=== PATIENT | female | born 1935 | race Caucasian/White ===

== ENCOUNTER 2020-08-21 08:09 | Emergency (ER) | payer MEDICARE, OTHER ==
[2020-08-21 08:50] LABS: BASOPHIL 0.5 % (0-2); EOSINOPHIL 1.9 % (0-7); HCT 40.3 % (37.0-47.0); HGB 13.9 g/dl (12.5-16.0); MCH 32.4 pg (25.0-31.0); MCHC 34.5 g/dL (32.0-36.0); MCV 93.9 fL (78.0-100.0); MONOCYTE 6.9 % (0-12); MPV 10.9 fL (6.0-9.5); NEUTROPHIL 79.4 % (41-80); NRBC 0; PLT 146 K/uL (150-400); RBC 4.29 M/uL (4.20-5.40); RDW 12.7 % (11.5-14.0); WBC 6.4 K/uL (4.0-10.5)
[2020-08-21 09:06] LABS: ALBUMIN 3.6 g/dL (3.4-5.0); BILIRUBIN - TOTAL 0.9 mg/dL (0.2-1.0); BUN/CREAT RATIO (CALC) 21.5 RATIO; CREATININE 0.79 mg/dL (0.51-0.95); GLOBULIN (CALCULATION) 3.3 g/dL; POTASSIUM 3.6 mmol/L (3.5-5.1); TOTAL PROTEIN 6.9 g/dL (6.4-8.2)
[2020-08-21 09:28] LABS: BILIRUBIN NEGATIVE (NEGATIVE); BLOOD NEGATIVE Ery/uL (NEGATIVE); CLARITY CLEAR (CLEAR); COLOR YELLOW (YELLOW); GLUCOSE (U) NORMAL (NORMAL); LEUKOCYTES 1+ Leu/uL (NEGATIVE); NITRITE NEGATIVE (NEGATIVE); PROTEIN 1+ mg/dL (NEGATIVE); SPECIFIC GRAVITY 1.015 (1.001-1.030); UROBILINOGEN 0.2 mg/dL (0.2-1.0); pH 7.5 (5.0-9.0)
[2020-08-21 09:46] LABS: BACTERIA TRACE; URINARY WBC 20-50
[2020-08-21] MEDS ORDERED: CEFDINIR300 MG PO (10:15)
== END 2020-08-21 12:45 | disposition home or self-care (01) ==
LOC: FER 08:09
PROVIDERS: Emergency Medicine
DX: N39.0 Urinary tract infection, site not specified (principal); I10 Essential (primary) hypertension; I45.10 Unspecified right bundle-branch block; G20 Parkinson's disease; Z88.8 Allergy status to other drugs, medicaments and biological substances; Z79.899 Other long term (current) drug therapy
CPT/HCPCS: 36415; 71045; 72072; 80053; 81001; 84484; 85025; 87088; 93005

== ENCOUNTER 2020-08-31 08:44 | Day surgery (SDCO) | payer MEDICARE, OTHER ==
[~2020-08-31 08:44] MED LIST: CEFDINIR300 MG PO
[2020-08-31 10:09] LABS: BILIRUBIN NEGATIVE (NEGATIVE); BLOOD NEGATIVE Ery/uL (NEGATIVE); CLARITY CLEAR (CLEAR); COLOR YELLOW (YELLOW); GLUCOSE (U) NORMAL (NORMAL); LEUKOCYTES NEGATIVE Leu/uL (NEGATIVE); NITRITE NEGATIVE (NEGATIVE); PROTEIN 2+ mg/dL (NEGATIVE); UROBILINOGEN 0.2 mg/dL (0.2-1.0); pH 7.5 (5.0-9.0)
[2020-08-31 10:21] LABS: BASOPHIL 0.9 % (0-2); EOSINOPHIL 1.1 % (0-7); HGB 14.1 g/dl (12.5-16.0); LYMPHOCYTE 16.7 % (15-48); MCHC 34.4 g/dL (32.0-36.0); MCV 93.2 fL (78.0-100.0); MONOCYTE 6.7 % (0-12); MPV 10.6 fL (6.0-9.5); NEUTROPHIL 74.4 % (41-80); NRBC 0; PLT 187 K/uL (150-400); RDW 12.5 % (11.5-14.0); WBC 5.4 K/uL (4.0-10.5)
[2020-08-31 10:35] LABS: BACTERIA TRACE; URINARY WBC RARE
[2020-08-31 11:19] LABS: LACTIC ACID 2.1 mmol/L (0.4-1.9)
[2020-08-31 11:27] LABS: ALKALINE PHOSHATASE 139 U/L (46-116); ALT 18 U/L (14-59); AST 14 U/L (15-37); BILIRUBIN - TOTAL 0.9 mg/dL (0.2-1.0); BUN 14 mg/dL (7-18); BUN/CREAT RATIO (CALC) 15.7 RATIO; C-REACTIVE PROTEIN < 0.20 mg/dL (<=0.90); CHLORIDE 108 mmol/L (98-107); CO2 (BICARBONATE) 27 mmol/L (21-32); CPK 52 U/L (26-192); CREATININE 0.89 mg/dL (0.51-0.95); GLOBULIN (CALCULATION) 3.4 g/dL; GLUCOSE 125 mg/dL (74-106); LDH 162 U/L (81-234); LIPASE 121 U/L (73-393); MAGNESIUM 1.7 mg/dL (1.8-2.4); TOTAL PROTEIN 7.4 g/dL (6.4-8.2)
[2020-08-31] MEDS ORDERED: LOPRESSOR50 MG PO (15:00)
[2020-08-31] MEDS ORDERED: LIPITOR10 MG PO (15:02)
[2020-08-31] MEDS ORDERED: CARBIDOPA-LEVO1 EAC1 PO (15:03)
[2020-09-01 06:15] LABS: HCT 37.6 % (37.0-47.0); MCH 32.8 pg (25.0-31.0); MCHC 34.6 g/dL (32.0-36.0); MCV 94.9 fL (78.0-100.0); MPV 10.1 fL (6.0-9.5); RBC 3.96 M/uL (4.20-5.40); RDW 13.1 % (11.5-14.0); WBC 5.1 K/uL (4.0-10.5)
[2020-09-01 06:39] LABS: BUN/CREAT RATIO (CALC) 16.7 RATIO; CREATININE 0.78 mg/dL (0.51-0.95); POTASSIUM 3.7 mmol/L (3.5-5.1)
[2020-09-01] MEDS ORDERED: NORVASC5 MG PO (13:01)
[2020-09-01] MEDS ORDERED: ZOFRAN4 M1 PO (13:01)
[2020-09-01] MEDS ORDERED: METRONIDAZOLE500 MG PO (13:01)
--- NOTE | 2020-09-02 08:59 | NUR ---
PT. D/C HOME ON 09/01/20.
== END 2020-09-01 15:50 | disposition home or self-care (01) ==
LOC: FER 08:44 → FMS 13:46
PROVIDERS: Emergency Medicine; ADMIT Hospitalist
DX: R19.7 Diarrhea, unspecified (principal); I16.0 Hypertensive urgency; I10 Essential (primary) hypertension; E78.5 Hyperlipidemia, unspecified; H35.30 Unspecified macular degeneration; R93.89 Abnormal findings on diagnostic imaging of other specified body structures; N83.202 Unspecified ovarian cyst, left side; I71.2 Thoracic aortic aneurysm, without rupture; D25.9 Leiomyoma of uterus, unspecified; E87.0 Hyperosmolality and hypernatremia; E86.0 Dehydration; Z88.8 Allergy status to other drugs, medicaments and biological substances; Z20.822 Contact with and (suspected) exposure to COVID-19
CPT/HCPCS: 36415; 71250; 76856; 80048; 80053; 81001; 82550; 82728; 83605; 83615; 83690; 83735; 84145; 85025; 86140; 97162; 97166; 97530-GP; 97535; G0378; J2405; J3490; J7030; J7120; U0002

== ENCOUNTER 2021-01-30 17:04 | Inpatient (IN) | payer MEDICARE ==
[~2021-01-30] VITALS: Ht 162.6 cm; Wt 60.4 kg
[~2021-01-30 17:04] MED LIST changes: +CARBIDOPA-LEVO1 EAC1 PO; +LIPITOR10 MG PO; +LOPRESSOR50 MG PO; +METRONIDAZOLE500 MG PO; +NORVASC5 MG PO; +ZOFRAN4 M1 PO
[2021-01-30 20:05] LABS: BASOPHIL 0.2 % (0-2); EOSINOPHIL 0 % (0-7); HCT 37.2 % (37.0-47.0); HGB 12.9 g/dl (12.5-16.0); LYMPHOCYTE 8.2 % (15-48); MCH 31.6 pg (25.0-31.0); MCHC 34.7 g/dL (32.0-36.0); MCV 91.2 fL (78.0-100.0); MONOCYTE 10.3 % (0-12); NEUTROPHIL 80.9 % (41-80); NRBC 0; PLT 130 K/uL (150-400); RBC 4.08 M/uL (4.20-5.40); RDW 11.9 % (11.5-14.0); WBC 4.9 K/uL (4.0-10.5)
[2021-01-30 20:26] LABS: ALBUMIN 2.8 g/dL (3.4-5.0); BILIRUBIN - TOTAL 0.5 mg/dL (0.2-1.0); BUN/CREAT RATIO (CALC) 24.7 RATIO; C-REACTIVE PROTEIN 6.9 mg/dL (<=0.90); CREATININE 0.89 mg/dL (0.51-0.95); FT4 (FREE T4) 1.3 ng/dL (0.76-1.46); GLOBULIN (CALCULATION) 4.1 g/dL; MAGNESIUM 1.9 mg/dL (1.8-2.4); POTASSIUM 4.2 mmol/L (3.5-5.1); TOTAL PROTEIN 6.9 g/dL (6.4-8.2)
[2021-01-30 20:39] LABS: LACTIC ACID 1.1 mmol/L (0.4-1.9)
[2021-01-30 20:41] LABS: BILIRUBIN NEGATIVE (NEGATIVE); BLOOD TRACE-INTACT Ery/uL (NEGATIVE); CLARITY CLEAR (CLEAR); COLOR YELLOW (YELLOW); GLUCOSE (U) NORMAL (NORMAL); LEUKOCYTES NEGATIVE Leu/uL (NEGATIVE); NITRITE NEGATIVE (NEGATIVE); PROTEIN 2+ mg/dL (NEGATIVE); SPECIFIC GRAVITY 1.025 (1.001-1.030); UROBILINOGEN 0.2 mg/dL (0.2-1.0)
[2021-01-30 20:54] LABS: BACTERIA TRACE; URINARY RBC RARE
[2021-01-30 21:20] LABS: INFLUENZA A NAA NEGATIVE (NEGATIVE)
[2021-01-30 21:21] LABS: CORONAVIRUS 2019 SARS-COV-2 POSITIVE (NEGATIVE)
[2021-01-30] MEDS ORDERED: NORVASC2.5 MG PO (23:55)
[2021-01-31 04:36] LABS: BASOPHIL 0 % (0-2); EOSINOPHIL 0 % (0-7); HGB 11.7 g/dl (12.5-16.0); LYMPHOCYTE 14.1 % (15-48); MCH 31.5 pg (25.0-31.0); MCHC 34.4 g/dL (32.0-36.0); MCV 91.4 fL (78.0-100.0); MONOCYTE 5.7 % (0-12); MPV 10.8 fL (6.0-9.5); NRBC 0; PLT 112 K/uL (150-400); RBC 3.72 M/uL (4.20-5.40)
[2021-01-31 04:39] LABS: NEUTROPHIL 79.5 % (41-80)
[2021-01-31 04:55] LABS: BUN/CREAT RATIO (CALC) 22.1 RATIO; CREATININE 0.86 mg/dL (0.51-0.95); POTASSIUM 4.2 mmol/L (3.5-5.1)
--- NOTE | 2021-02-01 15:30 | NUR ---
SPOKE WITH PT. SPOUSE, SHE IS DEAF AND LEGALLY BLIND. PER SPOUSE, PT IS ALREADY SET UP WITH [facility]. THEY CALLED HIM TODAY AND HE ADVISED [facility] THAT PT IS IN THE HOSPITAL. ADVISED HIM THAT PT. WILL ALSO REQUIRE HOME O2 AT DISCHARGE. SPOUSE AGREED WITH THIS PLAN AND STATED THAT I COULD FILL OUT THE CHOICE FORM.
[2021-02-02 06:12] LABS: BASOPHIL 0 % (0-2); EOSINOPHIL 0 % (0-7); HCT 39.3 % (37.0-47.0); HGB 13.4 g/dl (12.5-16.0); LYMPHOCYTE 5.4 % (15-48); MCH 31.2 pg (25.0-31.0); MCHC 34.1 g/dL (32.0-36.0); MCV 91.6 fL (78.0-100.0); MONOCYTE 3.9 % (0-12); MPV 10.8 fL (6.0-9.5); NEUTROPHIL 90.3 % (41-80); NRBC 0; PLT 182 K/uL (150-400); RBC 4.29 M/uL (4.20-5.40); RDW 12.4 % (11.5-14.0); WBC 7.6 K/uL (4.0-10.5)
[2021-02-02 06:45] LABS: BUN/CREAT RATIO (CALC) 27.5 RATIO; C-REACTIVE PROTEIN 3.4 mg/dL (<=0.90); CREATININE 0.8 mg/dL (0.51-0.95); POTASSIUM 4.3 mmol/L (3.5-5.1)
--- NOTE | 2021-02-02 13:09 | NUR ---
02/02/21 Home 02 was ordered from [facility] per family choice. Report given to MS CARLOS Cervantes.
--- NOTE | 2021-02-03 16:55 | NUR ---
TC WITH PT. SPOUSE, HE WOULD LIKE FOR HIS TO GO REHAB. EXPLAINED THAT THE ONLY FACILITY IS IN [facility]. HE IS IN AGREEMENT FOR PT. TO GO THERE FOR REHAB. TC TO OSVALDO, DAUGHTER [phone]. SHE WOULD LIKE HER MOTHER TO GO TO REHAB. SHE UNDERSTANDS THAT THIS FACILITY IS 3 HOURS AWAY. TC FROM [facility] AT [facility] WILL ACCEPT PATIENT ONCE INSURANCE APPROVES. [facility] WILL SUBMIT INSURNACE THIS DATE.
[2021-02-04 06:19] LABS: BASOPHIL 0.2 % (0-2); EOSINOPHIL 0 % (0-7); HCT 40.7 % (37.0-47.0); HGB 14.2 g/dl (12.5-16.0); MCH 31.1 pg (25.0-31.0); MCHC 34.9 g/dL (32.0-36.0); MCV 89.3 fL (78.0-100.0); MONOCYTE 4.9 % (0-12); MPV 10.3 fL (6.0-9.5); NEUTROPHIL 85.5 % (41-80); NRBC 0; PLT 216 K/uL (150-400); RBC 4.56 M/uL (4.20-5.40); WBC 5.8 K/uL (4.0-10.5)
[2021-02-04 06:30] LABS: LYMPHOCYTE 8.9 % (15-48)
[2021-02-04 07:01] LABS: BUN/CREAT RATIO (CALC) 32.1 RATIO; CREATININE 0.81 mg/dL (0.51-0.95); POTASSIUM 3.5 mmol/L (3.5-5.1)
--- NOTE | 2021-02-05 12:10 | NUR ---
ADVISED DR. WAGONER TODAY IS THE LAST DAY FOR PT TO [facility]MIT [facility] PER INSURANCE. PT WILL NOT REQUIRE A NEW COVID TEST. REPORT NUMBER IS [phone] AND FAX IS [phone].
[2021-02-05] MEDS ORDERED: MIRALAX17 GM PO (13:00)
[2021-02-05] MEDS ORDERED: DEXAMETHASONE6 MG PO (13:00)
[2021-02-05] MEDS ORDERED: PROTONIX 40MG T40 MG PO (13:00)
[2021-02-05] MEDS ORDERED: VENTOLIN HFA IN18 GM INH (13:00)
--- NOTE | 2021-02-05 15:46 | NUR ---
PT TO D/C TO [facility] THIS DATE. ADVISED HER OF PT. DISCHARGE.
== END 2021-02-05 16:25 | DRG 177 ==
LOC: FER 17:04 → FMS 22:11
PROVIDERS: Allergy & Immunology Allergy; Emergency Medicine Emergency Medical Services; Internal Medicine; Nurse Practitioner; ADMIT Internal Medicine
PROC: 8E0ZXY6 Isolation (ICD-10-PCS; principal; 2021-01-30)
PROC: XW033E5 Introduction of Remdesivir Anti-infective into Peripheral Vein, Percutaneous Approach, New Technology Group 5 (ICD-10-PCS; 2021-01-31)
DX: U07.1 COVID-19 (principal); J96.01 Acute respiratory failure with hypoxia; J12.82 Pneumonia due to coronavirus disease 2019; E78.5 Hyperlipidemia, unspecified; I10 Essential (primary) hypertension; G20 Parkinson's disease; Z66 Do not resuscitate; Z90.710 Acquired absence of both cervix and uterus; Z90.89 Acquired absence of other organs; Z82.49 Family history of ischemic heart disease and other diseases of the circulatory system; Z88.8 Allergy status to other drugs, medicaments and biological substances; Z79.899 Other long term (current) drug therapy
CPT/HCPCS: 36415; 36600; 70450; 71045; 71275; 80048; 80053; 81001; 82550; 82728; 82803; 83605; 83735; 84145; 84439; 84443; 84484; 85025; 86140; 87088; 93005; 94010; 94640; 94668; 97110; 97162; 97166; 97530-GP; 97535; C9399; J1100; J1650; J7030; J7050; J7120; Q9967; U0002